=== PATIENT | male | born 1930 | race Caucasian/White ===

== ENCOUNTER 2017-02-18 18:19 | Observation (INO) | payer MEDICARE, BC ==
[2017-02-18 18:52] LABS: BASOPHILS % (AUTO) 0 % (0-3); EOSINOPHILS % (AUTO) 0 % (0-9); HEMATOCRIT 40 % (39-53); MEAN CORPUSCULAR HGB CONC 34.5 gm/dl (32.0-36.0); MEAN CORPUSCULAR VOLUME 87 fL (80-100); MONOCYTES % (AUTO) 10.7 % (0-12); NEUTROPHILS % (AUTO) 78.1 % (37-80)
[2017-02-18 19:07] LABS: ALBUMIN 3.2 gm/dl (3.4-5.0); POTASSIUM 3.9 mMol/L (3.5-5.1)
[2017-02-18] MEDS ORDERED: SODIUM CHLORIDE 0.9% 1000ML 1,000 ML IV ONE (19:08)
[2017-02-18] MEDS: SODIUM CHLORIDE 0.9% FLUSH 10 ML SOL IV PRN (19:08)
[2017-02-18 19:50] LABS: APPEARANCE,URINE Slightly Cloudy; BILIRUBIN,URINE NEGATIVE (NEGATIVE); COLOR,URINE Dark yellow; GLUCOSE, URINE (UA) NEGATIVE (NEGATIVE); KETONES,URINE TRACE (NEGATIVE); LEUKOCYTE ESTERASE ,URINE NEGATIVE (NEGATIVE); NITRATE,URINE NEGATIVE (NEGATIVE); OCCULT BLOOD,URINE 2+ (NEG-TRACE); PH,URINE 5.5
[2017-02-18] MEDS ORDERED: LEVOFLOXACIN 500 MG TAB ONE (19:56)
[2017-02-18] MEDS: LEVOFLOXACIN 500 MG TAB PO SCH (19:57)
[2017-02-18 20:03] LABS: WBC,URINE 0-3 (0-5AV/HPF)
[2017-02-18] MEDS ORDERED: ALBUTEROL HFA 60 PUFF/INHALER INH PRN (21:52)
[2017-02-18] MEDS ORDERED: WARFARIN SODIUM 5 MG TAB PO ONE (22:04)
[2017-02-18] MEDS: SIMVASTATIN 20 MG TAB PO SCH (22:15)
[2017-02-18] MEDS: ACETAMINOPHEN 325 MG PO PRN (22:16)
[2017-02-18] MEDS: TAMSULOSIN HYDROCHLORIDE 0.4 MG CAP PO SCH (22:16)
[2017-02-19] MEDS ORDERED: LISINOPRIL 20 MG TAB PO SCH (07:00)
[2017-02-19] MEDS ORDERED: AMLODIPINE 5 MG TAB PO SCH (07:00)
[2017-02-19] MEDS ORDERED: FUROSEMIDE 40 MG TAB PO SCH (07:00)
[2017-02-19] MEDS ORDERED: CALCIUM CARBONATE 600 MG PO SCH (07:00)
[2017-02-19] MEDS: AMLODIPINE 5 MG TAB PO SCH (08:06)
[2017-02-19] MEDS: FUROSEMIDE 40 MG TAB PO SCH (08:06)
[2017-02-19] MEDS: MULTIVITAMIN2 1 EA TAB PO SCH (08:07)
[2017-02-19] MEDS: ASCORBIC ACID 500 MG TAB PO SCH (08:07)
[2017-02-19] MEDS: ATENOLOL 25 MG TAB PO SCH (08:07)
[2017-02-19] MEDS: LISINOPRIL 20 MG TAB PO SCH (08:08)
[2017-02-19] MEDS ORDERED: PREGABALIN 25 MG CAP PO SCH (09:00)
[2017-02-19] MEDS ORDERED: PREGABALIN 50 MG CAP PO SCH (09:30)
[2017-02-19] MEDS: CALCIUM CARBONATE 500 MG TAB PO SCH (10:13)
[2017-02-19] MEDS: LEVOFLOXACIN 500 MG TAB PO SCH (12:23)
[2017-02-19] MEDS: FISH OIL 500 MG CAP PO SCH (12:32)
[2017-02-19] MEDS: SODIUM CHLORIDE 0.9% FLUSH 10 ML SOL IV PRN (17:46)
[2017-02-19] MEDS ORDERED: WARFARIN SODIUM 2.5 MG TAB PO SCH ×2 (18:00→21:52)
[2017-02-19] MEDS ORDERED: LEVOFLOXACIN 500 MG TAB PO SCH (20:00)
[2017-02-19] MEDS: TAMSULOSIN HYDROCHLORIDE 0.4 MG CAP PO SCH (20:18)
[2017-02-19] MEDS: SIMVASTATIN 20 MG TAB PO SCH (20:18)
[2017-02-19 23:37] VITALS: RESP 18
[2017-02-20] MEDS: ACETAMINOPHEN 325 MG PO PRN (02:52)
[2017-02-20 07:19] LABS: BASOPHILS % (AUTO) 1 % (0-3); EOSINOPHILS % (AUTO) 1 % (0-9); HEMATOCRIT 40 % (39-53); MEAN CORPUSCULAR HGB CONC 34.5 gm/dl (32.0-36.0); MEAN CORPUSCULAR VOLUME 87 fL (80-100); MONOCYTES % (AUTO) 10.8 % (0-12); NEUTROPHILS % (AUTO) 69.7 % (37-80)
[2017-02-20 07:30] LABS: CALCIUM 8.6 mg/dl (8.5-10.1); POTASSIUM 3.3 mMol/L (3.5-5.1)
[2017-02-20] MEDS ORDERED: POTASSIUM CHLORIDE 10 MEQ TER PO SCH (08:30)
[2017-02-20] MEDS: FISH OIL 500 MG CAP PO SCH (09:10)
[2017-02-20] MEDS: FUROSEMIDE 40 MG TAB PO SCH (09:10)
[2017-02-20] MEDS: LISINOPRIL 20 MG TAB PO SCH (09:11)
[2017-02-20] MEDS: CALCIUM CARBONATE 500 MG TAB PO SCH (09:11)
[2017-02-20] MEDS: ATENOLOL 25 MG TAB PO SCH (09:11)
[2017-02-20] MEDS: ASCORBIC ACID 500 MG TAB PO SCH (09:11)
[2017-02-20] MEDS: AMLODIPINE 5 MG TAB PO SCH (09:11)
[2017-02-20] MEDS: MULTIVITAMIN2 1 EA TAB PO SCH (09:11)
[2017-02-20 10:00] VITALS: BP 164/87; PULSE 88; TEMP 97; O2SAT 91
== END 2017-02-20 10:50 | disposition home or self-care (01) | DRG 195 ==
LOC: ED 18:19 → UNDOADMOB 19:58 → ACUTE CARE 19:58
PROVIDERS: ADMIT Family Medicine; ATTEND Family Medicine
DX: J18.1 Lobar pneumonia, unspecified organism (principal); G62.9 Polyneuropathy, unspecified; I48.91 Unspecified atrial fibrillation; R06.02 Shortness of breath; Z79.01 Long term (current) use of anticoagulants; E87.6 Hypokalemia
CPT/HCPCS: 36415; 71020; 80048; 80053; 81001; 83880; 84484; 85025; 85378; 85610; 87040; 93005; 93012; 94762; 99285; A6232

== ENCOUNTER 2017-08-06 08:49 | Day surgery (SDC) | payer MEDICARE, BC ==
[~2017-08-06 08:49] MED LIST: FENTANYL 100MCG/2ML SOL ONE; LIDOCAINE HCL 1% MPF SOL ONE; MIDAZOLAM 2 MG/2 ML SOL ONE; PROPOFOL 500 MG/50 ML EMU IV ONE
[2017-08-06] MEDS ORDERED: BUPIVACAINE HCL 0.5% MPF 10 ML SOL ONE (09:45)
[2017-08-06] MEDS ORDERED: LIDOCAINE HCL 2% MPF SOL ONE (09:45)
[2017-08-06 11:41] VITALS: BP 137/77; PULSE 57; RESP 18; TEMP 97.6; O2SAT 97
== END 2017-08-06 12:21 | disposition home or self-care (01) | DRG 74 ==
LOC: SURG 08:49
PROVIDERS: ATTEND Orthopaedic Surgery
DX: G56.02 Carpal tunnel syndrome, left upper limb (principal)
CPT/HCPCS: J2250; J3010; A6402; J2001; J2704

== ENCOUNTER 2017-11-16 17:47 | Inpatient (IN) | payer MEDICARE, BC ==
[2017-11-16] MEDS ORDERED: ONDANSETRON HCL 4 MG/2 ML SOL IV ONE (17:56)
[2017-11-16] MEDS ORDERED: HYDROMORPHONE HCL 2 MG/ML SOL IV ONE (17:56)
[2017-11-16] MEDS ORDERED: VANCOMYCIN HCL 500 MG PDS 1,000 MG in SODIUM CHLORIDE 0.9% 250 ML 250 ML IV ONE (17:56)
[2017-11-16] MEDS ORDERED: VANCOMYCIN HYDROCHLORIDE 500 MG PDS IV ONE (18:03)
[2017-11-16] MEDS ORDERED: HYDROMORPHONE HCL 2 MG/ML SOL ONE (18:04)
[2017-11-16] MEDS ORDERED: ONDANSETRON HCL 4 MG/2 ML SOL ONE (18:04)
[2017-11-16] MEDS ORDERED: LIDOCAINE HCL 1% MDV SOL SC ONE (18:30)
[2017-11-16] MEDS ORDERED: LIDOCAINE HCL 1% MPF SOL ONE (18:40)
[2017-11-16] MEDS ORDERED: CEFTRIAXONE 1 GM PDS 1 GM in SODIUM CHLORIDE 0.9% 50 ML 50 ML IV ONE (18:57)
[2017-11-16] MEDS ORDERED: SODIUM CHLORIDE 0.9% 500 ML 500 ML IV SCH (19:00)
[2017-11-16] MEDS ORDERED: CEFTRIAXONE 1 GM PDS ONE (19:06)
[2017-11-16 19:13] LABS: CALCIUM 8.3 mg/dl (8.5-10.1); POTASSIUM 4.1 mMol/L (3.5-5.1)
[2017-11-16 19:28] LABS: BASOPHILS % (AUTO) 1 % (0-3); EOSINOPHILS % (AUTO) 0 % (0-9); HEMATOCRIT 37 % (39-53); MEAN CORPUSCULAR HGB CONC 34.2 gm/dl (32.0-36.0); MEAN CORPUSCULAR VOLUME 87 fL (80-100); NEUTROPHILS % (AUTO) 62.7 % (37-80)
[2017-11-16] MEDS ORDERED: ALBUTEROL HFA 60 PUFF/INHALER INH PRN (20:46)
[2017-11-16] MEDS ORDERED: CEFTRIAXONE 1 GM PDS 1 GM in SODIUM CHLORIDE 0.9% 50 ML 50 ML IV SCH (21:00)
[2017-11-16] MEDS ORDERED: VANCOMYCIN HCL 500 MG PDS 1,000 MG in SODIUM CHLORIDE 0.9% 250 ML 250 ML IV SCH (21:00)
[2017-11-16] MEDS: TAMSULOSIN HYDROCHLORIDE 0.4 MG CAP PO SCH (22:46)
[2017-11-16] MEDS: SIMVASTATIN 20 MG TAB PO SCH (22:46)
[2017-11-16] MEDS: WARFARIN SODIUM 5 MG TAB PO SCH (22:47)
[2017-11-17] MEDS ORDERED: CEFTRIAXONE 1 GM PDS ONE (05:43)
[2017-11-17] MEDS ORDERED: SODIUM CHLORIDE 0.9% 50 ML 50 ML IV ONE (05:43)
[2017-11-17] MEDS ORDERED: SODIUM CHLORIDE 0.9% 250 ML 250 ML IV ONE ×3 (06:01→15:38)
[2017-11-17] MEDS ORDERED: VANCOMYCIN HYDROCHLORIDE 500 MG PDS IV ONE ×3 (06:01→15:38)
[2017-11-17] MEDS: VANCOMYCIN HCL 500 MG PDS 1,000 MG in SODIUM CHLORIDE 0.9% 250 ML 250 ML IV SCH ×2 (06:16→17:22)
[2017-11-17] MEDS ORDERED: AMLODIPINE 5 MG TAB PO SCH (07:00)
[2017-11-17] MEDS ORDERED: FUROSEMIDE 20 MG TAB PO SCH (07:00)
[2017-11-17] MEDS ORDERED: LISINOPRIL 20 MG TAB PO SCH (07:00)
[2017-11-17] MEDS ORDERED: APAP/HYDROCODONE 325/5 TAB PO PRN (07:28)
[2017-11-17] MEDS ORDERED: HYDROMORPHONE 1 MG/ML SYRINGE IV PRN (08:33)
[2017-11-17] MEDS: SODIUM CHLORIDE 0.9% FLUSH 10 ML SOL IV SCH ×3 (08:35→19:37)
[2017-11-17] MEDS: ATENOLOL 25 MG TAB PO SCH (08:41)
[2017-11-17] MEDS: APAP/HYDROCODONE 325/5 TAB PO PRN ×3 (10:46→21:47)
[2017-11-17] MEDS: WARFARIN SODIUM 5 MG TAB PO SCH (17:42)
[2017-11-17] MEDS: CEFTRIAXONE 1 GM PDS 1 GM in SODIUM CHLORIDE 0.9% 50 ML 50 ML IV SCH (19:05)
[2017-11-17] MEDS: SIMVASTATIN 20 MG TAB PO SCH (20:11)
[2017-11-17] MEDS: TAMSULOSIN HYDROCHLORIDE 0.4 MG CAP PO SCH (20:12)
[2017-11-18] MEDS: SODIUM CHLORIDE 0.9% FLUSH 10 ML SOL IV SCH ×4 (01:23→20:30)
[2017-11-18] MEDS ORDERED: SODIUM CHLORIDE 0.9% 250 ML 250 ML IV ONE ×2 (05:33→17:53)
[2017-11-18] MEDS ORDERED: VANCOMYCIN HYDROCHLORIDE 500 MG PDS IV ONE ×2 (05:33→17:53)
[2017-11-18] MEDS: VANCOMYCIN HCL 500 MG PDS 1,000 MG in SODIUM CHLORIDE 0.9% 250 ML 250 ML IV SCH ×2 (06:16→17:59)
[2017-11-18] MEDS: FUROSEMIDE 40 MG TAB PO SCH (06:46)
[2017-11-18] MEDS: APAP/HYDROCODONE 325/5 TAB PO PRN ×3 (06:56→20:03)
[2017-11-18] MEDS: ATENOLOL 25 MG TAB PO SCH (08:33)
[2017-11-18] MEDS: AMLODIPINE 5 MG TAB PO SCH (08:34)
[2017-11-18] MEDS: LISINOPRIL 20 MG TAB PO SCH (08:34)
[2017-11-18] MEDS: WARFARIN SODIUM 5 MG TAB PO SCH (18:01)
[2017-11-18] MEDS ORDERED: CEFTRIAXONE 1 GM PDS ONE (19:48)
[2017-11-18] MEDS ORDERED: SODIUM CHLORIDE 0.9% 50 ML 50 ML IV ONE (19:48)
[2017-11-18] MEDS: CEFTRIAXONE 1 GM PDS 1 GM in SODIUM CHLORIDE 0.9% 50 ML 50 ML IV SCH (19:57)
[2017-11-18] MEDS: TAMSULOSIN HYDROCHLORIDE 0.4 MG CAP PO SCH (20:03)
[2017-11-18] MEDS: SIMVASTATIN 20 MG TAB PO SCH (20:03)
[2017-11-19] MEDS ORDERED: SODIUM CHLORIDE 0.9% 250 ML 250 ML IV ONE (05:08)
[2017-11-19] MEDS ORDERED: VANCOMYCIN HYDROCHLORIDE 500 MG PDS IV ONE (05:08)
[2017-11-19] MEDS: SODIUM CHLORIDE 0.9% FLUSH 10 ML SOL IV SCH (06:25)
[2017-11-19] MEDS: VANCOMYCIN HCL 500 MG PDS 1,000 MG in SODIUM CHLORIDE 0.9% 250 ML 250 ML IV SCH (06:25)
[2017-11-19] MEDS: APAP/HYDROCODONE 325/5 TAB PO PRN ×2 (06:31→12:23)
[2017-11-19] MEDS: FUROSEMIDE 40 MG TAB PO SCH (06:31)
[2017-11-19 06:50] VITALS: PULSE 73; TEMP 98.8
[2017-11-19 07:14] LABS: BASOPHILS % (AUTO) 1 % (0-3); EOSINOPHILS % (AUTO) 1 % (0-9); HEMATOCRIT 33 % (39-53); MEAN CORPUSCULAR HGB CONC 34.7 gm/dl (32.0-36.0); MEAN CORPUSCULAR VOLUME 86 fL (80-100); MONOCYTES % (AUTO) 12.5 % (0-12); NEUTROPHILS % (AUTO) 66.7 % (37-80)
[2017-11-19 07:27] LABS: CALCIUM 7.8 mg/dl (8.5-10.1)
[2017-11-19] MEDS: AMLODIPINE 5 MG TAB PO SCH (08:25)
[2017-11-19] MEDS: LISINOPRIL 20 MG TAB PO SCH (08:26)
[2017-11-19] MEDS: ATENOLOL 25 MG TAB PO SCH (08:26)
[2017-11-19 09:10] VITALS: BP 133/52; RESP 24; O2SAT 90
[2017-11-19] MEDS ORDERED: PNEUMOC 13-VAL CONJ-DIP CRM/PF 0.5 ML SYRINGE IM ONE (11:41)
== END 2017-11-19 12:40 | DRG 603 ==
LOC: ED 17:47 → UNDOADMIN 20:31 → ACUTE CARE 20:31
PROVIDERS: ADMIT Emergency Medicine; ATTEND Emergency Medicine
PROC: F01ZCZZ Transfer Assessment (ICD-10-PCS; principal; 2017-11-18)
PROC: F01L5ZZ Range of Motion and Joint Integrity Assessment of Musculoskeletal System - Lower Back / Lower Extremity (ICD-10-PCS; 2017-11-18)
PROC: F02Z1ZZ Dressing Assessment (ICD-10-PCS; 2017-11-18)
PROC: F02Z0ZZ Bathing/Showering Assessment (ICD-10-PCS; 2017-11-18)
PROC: F02Z3ZZ Grooming/Personal Hygiene Assessment (ICD-10-PCS; 2017-11-18)
DX: L03.116 Cellulitis of left lower limb (principal); I48.91 Unspecified atrial fibrillation; E11.9 Type 2 diabetes mellitus without complications; S80.12XA Contusion of left lower leg, initial encounter; Z79.01 Long term (current) use of anticoagulants; R53.1 Weakness
CPT/HCPCS: 10140; 36415; 80048; 82550; 85025; 85610; 87040; 87070; 96365; 96374; 96375; 99222; 99291; J0696; J1170; J2405; J3370; A6232; A9270; A9270-GY; J2001